=== PATIENT | male | born 1945 | race Caucasian/White ===

== ENCOUNTER 2017-03-14 23:13 | Observation (INO) | payer OTHER ==
[~2017-03-14] VITALS: Ht 170.2 cm; Wt 128.8 kg
[2017-03-14 23:19] VITALS: BP 146/70; PULSE 88; RESP 18; TEMP 97.5; O2SAT 99
--- NOTE | 2017-03-14 23:58 | PD ---
HPI Chief Complaint: Fall Time Seen by Provider: 23:49 Travel History International Travel<30 days: No Contact w/Intl Traveler<30days: No Traveled to known affect area: No History of Present Illness HPI The patient is a 71-year-old male that fell around 3:00 this afternoon trying to get out of bed. He complains of left hip pain and right shoulder pain. He could not get up due to generalized weakness and obesity, the patient weighs in excess of 300 pounds. He laid on the floor for about 10 hours. [facility] states that the patient had to be picked up. He has not had anything to year drink since 3 PM. Multiple fire and rescue staff were needed to drag the patient and place him in to the ambulance. The house was dirty and dog feces were present inside the house. 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 He cannot remember any of his doctors other than he uses [facility]. He apparently is a [facility] patient. He cannot remember his oncologist. PFSH Past Medical History Cancer: Yes (LEFT PAROTID) High Cholesterol: Yes COPD: Yes Diabetes: Yes Patient Takes Glucophage: Yes Diverticulitis: Yes Pneumonia: Yes Tetanus Vaccination: < 5 Years Influenza Vaccination: Yes Past Surgical History Appendectomy: Yes Other Surgery: Yes (LEFT PAROTID GLAND CANCER REMOVED) Social History Alcohol Use: No Tobacco Use: No Substance Use: No Allergies-Medications (Allergen,Severity, Reaction): Coded Allergies: No Known Allergies (Verified Allergy, Unknown, 03/14/17) Reported Meds & Prescriptions Reported Meds & Active Scripts Active Reported Metformin (Metformin HCl) 500 Mg Tab 500 Mg PO BIDPC With meals Gabapentin 300 Mg Cap 300 Mg PO TID Lantus Inj (Insulin Glargine) 1,000 Unit/10 Ml Vial 1 Units SQ HS Review of Systems Except as stated in HPI: all other systems reviewed are Neg Physical Exam Narrative GENERAL: The patient is morbidly obese, alert, oriented 3 and moderate distress with his left hip pain. The blood pressure is 146/70 but the rest the vital signs are normal. SKIN: Focused skin assessment warm/dry. HEAD: Atraumatic. Normocephalic. EYES: Pupils equal and round. No scleral icterus. No injection or drainage. ENT: No nasal bleeding or discharge. Mucous membranes pink and moist. NECK: Trachea midline. No JVD. CARDIOVASCULAR: Regular rate and rhythm. No murmur appreciated. RESPIRATORY: No accessory muscle use. Clear to auscultation. Breath sounds equal bilaterally. GASTROINTESTINAL: Abdomen soft, non-tender, nondistended. Hepatic and splenic margins not palpable. MUSCULOSKELETAL: No obvious deformities. No clubbing. No cyanosis. No edema. There is no foreshortening of the left hip but there is tenderness over the greater trochanter. No obvious deformity is present. No ecchymoses are present. The right shoulder shows slight tenderness anteriorly but no deformity is present over the right shoulder. Good capillary refill and pinprick is present distally on the right hand and right foot. It is difficult testing this patient because he appears sleepy. NEUROLOGICAL: Awake and alert. No obvious cranial nerve deficits. Motor grossly within normal limits. Normal speech. PSYCHIATRIC: Appropriate mood and affect; insight and judgment normal. Data Data Last Documented VS Vital Signs Date Time Temp Pulse Resp B/P (MAP) Pulse Ox O2 Delivery O2 Flow Rate FiO2 03/15/17 00:52 87 16 136/62 (86) 100 Nasal Cannula 3.00 03/14/17 23:19 97.5 Orders Orders Electrocardiogram (03/14/17 23:49) Ammonia (03/14/17 23:49) Complete Blood Count With Diff (03/14/17 23:49) Comprehensive Metabolic Panel (03/14/17 23:49) Troponin I (03/14/17 23:49) Urinalysis - C+S If Indicated (03/14/17 23:49) Blood Glucose (03/14/17 23:49) Ecg Monitoring (03/14/17 23:49) Iv Access Insert/Monitor (03/14/17 23:49) Oximetry (03/14/17 23:49) Sodium Chloride 0.9% Flush (Ns Flush) (03/15/17 00:00) Hip, Uni(Ap&Lat) W Ap Pelvis (03/14/17 23:49) Sodium Chloride 0.9% Flush (Ns Flush) (03/15/17 00:00) Shoulder, Complete (>2vws) (03/14/17 23:49) Morphine Inj (Morphine Inj) (03/15/17 00:00) Ondansetron Inj (Zofran Inj) (03/15/17 00:00) Labs Laboratory Tests Test 03/15/17 00:10 03/15/17 00:45 White Blood Count 11.2 TH/MM3 Red Blood Count 4.21 MIL/MM3 Hemoglobin 12.6 GM/DL Hematocrit 37.2 % Mean Corpuscular Volume 88.3 FL Mean Corpuscular Hemoglobin 29.8 PG Mean Corpuscular Hemoglobin Concent 33.7 % Red Cell Distribution Width 13.5 % Platelet Count 143 TH/MM3 Mean Platelet Volume 7.7 FL Neutrophils (%) (Auto) 77.4 % Lymphocytes (%) (Auto) 13.5 % Monocytes (%) (Auto) 6.3 % Eosinophils (%) (Auto) 2.4 % Basophils (%) (Auto) 0.4 % Neutrophils # (Auto) 8.7 TH/MM3 Lymphocytes # (Auto) 1.5 TH/MM3 Monocytes # (Auto) 0.7 TH/MM3 Eosinophils # (Auto) 0.3 TH/MM3 Basophils # (Auto) 0.0 TH/MM3 CBC Comment DIFF FINAL Differential Comment Blood Urea Nitrogen 18 MG/DL Creatinine 0.83 MG/DL Random Glucose 181 MG/DL Total Protein 7.3 GM/DL Albumin 3.2 GM/DL Calcium Level 9.1 MG/DL Alkaline Phosphatase 128 U/L Aspartate Amino Transf (AST/SGOT) 22 U/L Alanine Aminotransferase (ALT/SGPT) 21 U/L Total Bilirubin 1.2 MG/DL Sodium Level 139 MEQ/L Potassium Level 3.8 MEQ/L Chloride Level 105 MEQ/L Carbon Dioxide Level 26.8 MEQ/L Anion Gap 7 MEQ/L Estimat Glomerular Filtration Rate 92 ML/MIN Ammonia 67 MCMOL/L Troponin I LESS THAN 0.02 NG/ML Urine Color YELLOW Urine Turbidity CLEAR Urine pH 6.0 Urine Specific [place] 1.020 Urine Protein NEG mg/dL Urine Glucose (UA) 100 mg/dL Urine Ketones NEG mg/dL Urine Occult Blood NEG Urine Nitrite NEG Urine Bilirubin NEG Urine Leukocyte Esterase NEG Urine RBC 0-2 /hpf Urine WBC 0-2 /hpf Urine Squamous Epithelial Cells 0-5 /hpf Urine Bacteria NONE /hpf Microscopic Urinalysis Comment CULT NOT INDICATED MDM Medical Decision Making Medical Screen Exam Complete: Yes Emergency Medical Condition: Yes Medical Record Reviewed: Yes Interpretation(s) The left hip shows no acute abnormality. The right shoulder shows no fracture dislocation but there are degenerative changes of the before meals joint generating subacromial spurring and narrowing. The EKG shows ectopic atrial rhythm, low QRS voltage and the ventricular rate is 88. There is no acute ST elevation or depression. The CBC shows a white count of 11,200 with a hemoglobin of 12.6 and hematocrit of 37.2. It is otherwise unremarkable. The complete metabolic profile shows a glucose of 181, albumen 3.2, total bilirubin 1.2 with alkaline phosphatase 128. The ammonia level is 67 and the troponin I is less than 0.02. The urine shows 100 glucose but is otherwise normal and culture is not indicated. Differential Diagnosis Left hip fracture, right shoulder fracture, right shoulder dislocation, left hip dislocationhighly unlikely, contusion left hip, contusion right shoulder, electrolyte disorder, generalized weakness, morbid obesity, inability to ambulate Narrative Course The patient likely has contusions of the left hip and right shoulder. He still cannot get up because of generalized weakness and also because of his morbid obesity makes it difficult to even sit up. He cannot sit up on his own at this time. Having him return to his current residence is extremely risky, he is likely to hand up on the floor again. The patient has inability to ambulate and morbid obesity. Physician Communication Physician Communication I discussed the patient with Dr. Cline, the patient will be admitted to her for 23 hour observation. Diagnosis Primary Impression: Inability to ambulate due to left hip Additional Impression: Morbid obesity Admitting Information Admitting Physician Requests: Observation Anders Connor MD Mar 14, 2017 23:58
[2017-03-15] MEDS ORDERED: MORPHINE SULFATE 4 MG/ML INJ IV PUSH ONE
[2017-03-15] MEDS ORDERED: SODIUM CHLORIDE 0.9% FLUSH 5 ML FLUSH IV FLUSH PRN
[2017-03-15] MEDS ORDERED: SODIUM CHLORIDE 0.9% FLUSH 10 ML FLUSH IVF PRN
[2017-03-15] MEDS ORDERED: ONDANSETRON HCL 4 MG/2 ML VIAL IV ONE
[2017-03-15] MEDS ORDERED: LANTUS2P SQ (00:28)
[2017-03-15] MEDS ORDERED: GABA300C5 PO (00:28)
[2017-03-15] MEDS ORDERED: METF500T PO (00:30)
[2017-03-15 00:32] LABS: AUTOMATED NEUTROPHIL # 8.7 TH/MM3 (1.8-7.7); BASOPHIL % 0.4 % (0.0-2.0); EOSINOPHIL # 0.3 TH/MM3 (0-0.4); EOSINOPHIL % 2.4 % (0.0-4.0); HEMATOCRIT 37.2 % (39.0-51.0); HEMO FLAGS DIFF FINAL; LYMPH % 13.5 % (9.0-44.0); LYMPHOCYTE # 1.5 TH/MM3 (1.0-4.8); MEAN CELL VOLUME 88.3 FL (80.0-100.0); MEAN CORPUSCULAR HEMOGLOBIN 29.8 PG (27.0-34.0); MEAN CORPUSCULAR HGB CONC 33.7 % (32.0-36.0); MONO % 6.3 % (0.0-8.0); NEUT % 77.4 % (16.0-70.0); PLATELET COUNT 143 TH/MM3 (150-450); RED BLOOD COUNT 4.21 MIL/MM3 (4.50-5.90); RED CELL DISTRIBUTION WIDTH 13.5 % (11.6-17.2); WHITE BLOOD COUNT 11.2 TH/MM3 (4.0-11.0)
--- NOTE | 2017-03-15 00:41 | RADRPT ---
EXAM DATE/TIME: 03/15/2017 00:16 [facility] COMPARISON: No previous studies available for comparison. INDICATIONS : Trauma, fall. MEDICAL HISTORY : SURGICAL HISTORY : None. ENCOUNTER: Initial ACUITY: 1 day PAIN SCORE: 10/10 LOCATION: Left hip FINDINGS: Examination of the left hip was performed with AP Pelvis. The primary and secondary trabecular patte rn of the femoral neck is intact. Osteophytic changes are seen involving the hip joints bilaterally. Degenerative changes noted at the lumbosacral junction. CONCLUSION: No acute abnormality. Kel Rocha Jr., MD on March 15, 2017 at 0:38 Board Certified Radiologist. This report was verified electronically.
[2017-03-15 00:42] LABS: CHLORIDE 105 MEQ/L (98-107); POTASSIUM 3.8 MEQ/L (3.5-5.1); SODIUM (NA) 139 MEQ/L (136-145)
[2017-03-15 00:46] LABS: ANION GAP 7 MEQ/L (5-15); BICARBONATE 26.8 MEQ/L (21.0-32.0); BLOOD UREA NITROGEN 18 MG/DL (7-18)
--- NOTE | 2017-03-15 00:48 | RADRPT ---
EXAM DATE/TIME: 03/15/2017 00:26 [facility] COMPARISON: No previous studies available for comparison. INDICATIONS : Trauma, fall. MEDICAL HISTORY : None. SURGICAL HISTORY : None. ENCOUNTER: Initial ACUITY: 1 day PAIN SCORE: 8/10 LOCATION: Left shoulder. FINDINGS: Multiple view examination of the right shoulder demonstrates no evidence of fracture or dislocation. Degenerative changes seen at the acromioclavicular joint with subacromial space spurring and narrowin g. There is normal range of motion between internal and external rotation. Bony mineralization is no rmal. CONCLUSION: 1. No fracture or dislocation. 2. Degenerative changes of the a.c. joint generating subacromial spurring and narrowing. This can gen erate impingement syndrome. Kel Rocha Jr., MD on March 15, 2017 at 0:45 Board Certified Radiologist. This report was verified electronically.
[2017-03-15 00:49] LABS: ALT (GPT) 21 U/L (12-78); AST (GOT) 22 U/L (15-37); GLOMERULAR FILTRATION RATE 92 ML/MIN (>89)
[2017-03-15 00:50] LABS: TOTAL BILIRUBIN ADULT 1.2 MG/DL (0.2-1.0)
[2017-03-15 00:52] VITALS: BP 136/62; PULSE 87; RESP 16; O2SAT 100
[2017-03-15 00:52] LABS: ALKALINE PHOSPHATASE 128 U/L (45-117)
[2017-03-15 01:04] LABS: BLOOD, URINE NEG (NEG); GLUCOSE,URINE 100 mg/dL (NEG); KETONE, URINE NEG (NEG); NITRITE,URINE NEG (NEG)
[2017-03-15 01:10] LABS: URINE COLOR YELLOW (YELLW/STRAW)
[2017-03-15 01:11] LABS: COMMENT (UR) CULT NOT INDICATED; CULTURE IF INDICATED CULT NOT INDICATED; RBC, URINE 0-2 /hpf (0-3); SQUAMOUS EPITHELIAL CELL URINE 0-5 /hpf (0-5); WBC, URINE 0-2 /hpf (0-5)
[2017-03-15 01:45] VITALS: BP 157/69; PULSE 90; RESP 16
[2017-03-15] MEDS ORDERED: SODIUM CHLORIDE 0.9% FLUSH 10 ML FLUSH IV FLUSH PRN (01:45)
[2017-03-15] MEDS ORDERED: NALOXONE HCL 0.4 MG/ML AMP IV PUSH PRN (01:45)
[2017-03-15] MEDS ORDERED: GLUCAGON 1 MG/ML VIAL OTHER PRN (01:45)
[2017-03-15] MEDS ORDERED: DEXTROSE 50% IN WATER 50 ML VIAL(D50) IV PUSH PRN (01:45)
[2017-03-15 03:15] VITALS: BP 137/74; PULSE 95; RESP 22; TEMP 95.9; O2SAT 98
[2017-03-15] MEDS: KETOROLAC TROMETHAMINE 30 MG/ML (IVP) VIAL IV PUSH PRN ×2 (03:15→08:53)
[2017-03-15 03:34] VITALS: PULSE 93
[2017-03-15] MEDS ORDERED: INSULIN ASPART SUPPLEMENTAL SCALE SQ SCH (08:00)
[2017-03-15] MEDS ORDERED: SODIUM CHLORIDE 0.9% FLUSH 10 ML FLUSH IV FLUSH SCH (09:00)
[2017-03-15 10:06] VITALS: BP 123/60; PULSE 82; RESP 16; TEMP 96.1; O2SAT 97
--- NOTE | 2017-03-15 11:27 | HHI.HP ---
[facility] Mauricio Lawson MD Admission Diagnosis inability to ambulate, morbid obesity Diagnoses: Travel History International Travel<30 Days: No Contact w/Intl Traveler <30 Da: No Traveled to Known Affected Are: No History of Present Illness This is a 71 year-old female with past medical history of COPD, obesity, type 2 diabetes who presented to the ER yesterday via [facility] after falling and being inability to get up. The patient states he was standing outside of his house and the 90 heat for about an hour waiting for a ride when he began to feel weak, he tried to walk back to the house and fell landing on his left side. He had pain in the left hip and the left abdomen. [facility] was called and he required significant assistance to get up, and he was brought to the emergency department. In the emergency department he was unable to sit up or ambulate and so he was placed in 23 hour observation. The patient denies any other recent falls. He lives by himself. This morning physical therapy evaluated him and he was able to get up with minimal assistance and ambulate independently through the hallway with walker. The patient does have a walker at home. Unfortunately this morning the patient was informed that his daughter was killed in a motor vehicle accident. The patient is adamant to be discharged home as soon as possible. Today the patient complains of moderate pain in his left hip and left flank. Review of Systems Constitutional: DENIES: Fever, Chills Eyes: DENIES: Diplopia, Vision loss Ears, nose, mouth, throat: DENIES: Throat pain, Hoarseness Respiratory: DENIES: Wheezing Cardiovascular: DENIES: Chest pain, Palpitations Gastrointestinal: DENIES: Abdominal pain, Vomiting Genitourinary: DENIES: Urgency, Dysuria Musculoskeletal: COMPLAINS OF: Joint pain, Muscle aches Integumentary: DENIES: Pruritus, Rash Hematologic/lymphatic: DENIES: Lymphadenopathy Neurologic: DENIES: Headache, Localized weakness Psychiatric: DENIES: Confusion, Mood changes Past Family Social History Past Medical History COPD Obstructive sleep apnea Type 2 diabetes Obesity Reported Medications Allergies Coded Allergies Type Severity Reaction Last Updated Verified No Known Allergies Allergy Unknown 03/14/17 Yes Active Scripts Medications Dose Route/Sig Max Daily Dose Days Date Category Dose Instructions Tramadol (Tramadol HCl) 50 Mg Tab 50 Mg PO Q8H PRN 03/15/17 Rx Metformin (Metformin HCl) 500 Mg Tab 500 Mg PO BIDPC 03/15/17 Reported With meals Gabapentin 300 Mg Cap 300 Mg PO TID 03/15/17 Reported Lantus Inj (Insulin Glargine) 1,000 Unit/10 Ml Vial 1 Units SQ HS 03/15/17 Reported Allergies: Coded Allergies: No Known Allergies (Verified Allergy, Unknown, 03/14/17) Family History Reviewed and noncontributory Social History No tobacco alcohol or drug use Physical Exam Vital Signs Vital Signs Date Time Temp Pulse Resp B/P (MAP) Pulse Ox O2 Delivery O2 Flow Rate FiO2 03/15/17 10:06 96.1 82 16 123/60 (81) 97 03/15/17 03:34 93 03/15/17 03:15 95.9 95 22 137/74 (95) 98 03/15/17 02:45 03/15/17 01:45 90 16 157/69 (98) Nasal Cannula 3.00 03/15/17 00:52 87 16 136/62 (86) 100 Nasal Cannula 3.00 03/15/17 00:40 Nasal Cannula 3.00 03/14/17 23:20 85 94 Room Air 03/14/17 23:19 97.5 88 18 146/70 (95) 99 Physical Exam GENERAL: Well-nourished, well-developed obese male patient. SKIN: Warm and dry. HEAD: Normocephalic. EYES: No scleral icterus. No injection or drainage. NECK: Supple, trachea midline. No JVD or lymphadenopathy. CARDIOVASCULAR: Regular rate and rhythm without murmurs, gallops, or rubs. RESPIRATORY: Breath sounds equal bilaterally. No accessory muscle use. GASTROINTESTINAL: Abdomen soft, non-tender, nondistended. Mild bruising at left flank. EXTREMITIES: 1+ pedal edema. Mildly tender to palpation over the left greater trochanter. NEUROLOGICAL: Awake, alert, and oriented x 3. Non-focal. Laboratory Laboratory Tests Test 03/15/17 00:10 03/15/17 00:45 White Blood Count 11.2 Red Blood Count 4.21 Hemoglobin 12.6 Hematocrit 37.2 Mean Corpuscular Volume 88.3 Mean Corpuscular Hemoglobin 29.8 Mean Corpuscular Hemoglobin Concent 33.7 Red Cell Distribution Width 13.5 Platelet Count 143 Mean Platelet Volume 7.7 Neutrophils (%) (Auto) 77.4 Lymphocytes (%) (Auto) 13.5 Monocytes (%) (Auto) 6.3 Eosinophils (%) (Auto) 2.4 Basophils (%) (Auto) 0.4 Neutrophils # (Auto) 8.7 Lymphocytes # (Auto) 1.5 Monocytes # (Auto) 0.7 Eosinophils # (Auto) 0.3 Basophils # (Auto) 0.0 CBC Comment DIFF FINAL Differential Comment Blood Urea Nitrogen 18 Creatinine 0.83 Random Glucose 181 Total Protein 7.3 Albumin 3.2 Calcium Level 9.1 Alkaline Phosphatase 128 Aspartate Amino Transf (AST/SGOT) 22 Alanine Aminotransferase (ALT/SGPT) 21 Total Bilirubin 1.2 Sodium Level 139 Potassium Level 3.8 Chloride Level 105 Carbon Dioxide Level 26.8 Anion Gap 7 Estimat Glomerular Filtration Rate 92 Ammonia 67 Troponin I LESS THAN 0.02 Urine Color YELLOW Urine Turbidity CLEAR Urine pH 6.0 Urine Specific [place] 1.020 Urine Protein NEG Urine Glucose (UA) 100 Urine Ketones NEG Urine Occult Blood NEG Urine Nitrite NEG Urine Bilirubin NEG Urine Leukocyte Esterase NEG Urine RBC 0-2 Urine WBC 0-2 Urine Squamous Epithelial Cells 0-5 Urine Bacteria NONE Microscopic Urinalysis Comment CULT NOT INDICATED Result Diagram: 03/15/17 00103/15/17 0010 Caprini VTE Risk Assessment Caprini VTE Risk Assessment: No/Low Risk (score <= 1) Caprini Risk Assessment Model Point Value = 1 Point Value = 2 Point Value = 3 Point Value = 5 Age 41-60 Minor surgery BMI > 25 kg/m2 Swollen legs Varicose veins or History of unexplained or recurrent spontaneous Oral contraceptives or hormone replacement Sepsis (< 1 month) Serious lung disease, including pneumonia (< 1 month) Abnormal pulmonary function Acute myocardial infarction Congestive heart failure (< 1 month) History of inflammatory bowel disease Medical patient at bed rest Age 61-74 Arthroscopic surgery Major open surgery (> 45 min) Laparoscopic surgery (> 45 min) Malignancy Confined to bed (> 72 hours) Immobilizing plaster cast Central venous access Age >= 75 History of VTE Family history of VTE Factor V Leiden Prothrombin [id number] Lupus anticoagulant Anticardiolipin antibodies Elevated serum homocysteine Heparin-induced thrombocytopenia Other congenital or acquired thrombophilia Stroke (< 1 month) Elective arthroplasty Hip, pelvis, or leg fracture Acute spinal cord injury (< 1 month) Prophylaxis Regimen Total Risk Factor Score Risk Level Prophylaxis Regimen 0-1 Low Early ambulation 2 Moderate Order ONE of the following: *Sequential Compression Device (SCD) *Heparin 5000 units SQ BID 3-4 Higher Order ONE of the following medications: *Heparin 5000 units SQ TID *Enoxaparin/Lovenox 40 mg SQ daily (WT < 150 kg, CrCl > 30 mL/min) *Enoxaparin/Lovenox 30 mg SQ daily (WT < 150 kg, CrCl > 10-29 mL/min) *Enoxaparin/Lovenox 30 mg SQ BID (WT < 150 kg, CrCl > 30 mL/min) AND/OR *Sequential Compression Device (SCD) 5 or more Highest Order ONE of the following medications: *Heparin 5000 units SQ TID (Preferred with Epidurals) *Enoxaparin/Lovenox 40 mg SQ daily (WT < 150 kg, CrCl > 30 mL/min) *Enoxaparin/Lovenox 30 mg SQ daily (WT < 150 kg, CrCl > 10-29 mL/min) *Enoxaparin/Lovenox 30 mg SQ BID (WT < 150 kg, CrCl > 30 mL/min) AND *Sequential Compression Device (SCD) Assessment and Plan Problem List: (1) Fall at home ICD Code: W19.XXXA - Unspecified fall, initial encounter; Y92.099 - Unspecified place in other non-institutional residence as the place of occurrence of the external cause Assessment and Plan -Status post fall yesterday after standing outside in the heat for about an hour - no injuries noted on imaging. Patient is now ambulating this morning with a walker. The patient is demanding to be discharged home as his daughter was killed in a motor vehicle accident this morning. Patient does have a walker at home. He declines home health care. We will discharge home however he was encouraged to follow-up with his primary care physician Dr. Lawson within 1 week and he states he will do this. Continue his other home medications. Carmita Callaway MD Mar 15, 2017 11:27
[2017-03-15] MEDS ORDERED: TRAM50TA PO (11:58)
--- NOTE | 2017-03-15 17:14 | EKG ---
Date Performed: 03/15/2017 Time Performed: 00:06:00 PTAGE: 71 years EKG: PROBABLE Sinus rhythm LOW QRS VOLTAGE IN PRECORDIAL LEADS SEPTAL MYOCARDIAL INFARCTION ABNORMAL ECG PREVIOUS TRACING : 04/09/2000 10.03 Compared to prior tracing no significant change DOCTOR: Herminio Polk Interpretating Date/Time 03/15/2017 17:13:52
== END 2017-03-15 12:29 | disposition home or self-care (01) ==
LOC: PHED 23:13 → PHEDA 03-15 01:42 → PH3A 03-15 02:50
PROVIDERS: ADMIT Family Medicine; ATTEND Family Medicine
DX: S70.02XA Contusion of left hip, initial encounter (principal); S40.011A Contusion of right shoulder, initial encounter; M25.511 Pain in right shoulder; R53.1 Weakness; R26.2 Difficulty in walking, not elsewhere classified; E78.00 Pure hypercholesterolemia, unspecified; J44.9 Chronic obstructive pulmonary disease, unspecified; E11.9 Type 2 diabetes mellitus without complications; K57.92 Diverticulitis of intestine, part unspecified, without perforation or abscess without bleeding; E66.01 Morbid (severe) obesity due to excess calories; Z68.41 Body mass index [BMI] 40.0-44.9, adult; Z79.4 Long term (current) use of insulin; R94.31 Abnormal electrocardiogram [ECG] [EKG]; W06.XXXA Fall from bed, initial encounter; Y93.89 Activity, other specified; Y92.013 Bedroom of single-family (private) house as the place of occurrence of the external cause; Z85.818 Personal history of malignant neoplasm of other sites of lip, oral cavity, and pharynx
CPT/HCPCS: 73030; 73502; 80053; 81001; 82140; 82948; 84484; 85025; 93005; 96372; 96374; 96375; 96376; 97162; 99285; G0378; G8987; G8988; J1815; J1885; J2270; J2405